=== PATIENT | female | born 1950 | race Caucasian/White ===

== ENCOUNTER → 2016-12-11 | Outpatient (CLI) | payer OTHER ==
[~2016-12-11] MED LIST: ASPI81TA28 PO; DLB500 PO; LEVO125C2 PO; LOSA50TA54 PO; LSX/40 PO; METO25TA56 PO; MISC1CAP58 PO; MULT-506 PO; POTA10TA PO; ZCR40 PO
== END | disposition home or self-care (01) ==
LOC: C.RDSM 15:04
PROVIDERS: ATTEND Physical Medicine & Rehabilitation Sports Medicine
DX: M19.011 Primary osteoarthritis, right shoulder (principal); Z97.10 Presence of artificial limb (complete) (partial), unspecified

== ENCOUNTER → 2017-07-27 | Outpatient (CLI) | payer OTHER | END | disposition home or self-care (01) | LOC: C.RDSM 15:30 | PROVIDERS: ATTEND Physical Medicine & Rehabilitation Sports Medicine | DX: M19.011 Primary osteoarthritis, right shoulder (principal); Z97.10 Presence of artificial limb (complete) (partial), unspecified ==

== ENCOUNTER 2018-11-18 07:26 | Inpatient (IN) ==
--- NOTE | 2018-11-04 14:11 | PAT Medication Instructions ---
Medication Instructions Date of Service November 04, 2018 Home Medications aspirin [Aspirin Low Dose] 81 mg PO HS diflunisal 500 mg PO BID fenofibrate micronized 134 mg PO PM furosemide 40 mg PO QAM levothyroxine 125 mcg PO QAM losartan 50 mg PO HS lutein 20 mg PO HS metoprolol succinate 50 mg PO HS multivitamin 1 tab PO HS potassium chloride 20 meq PO BID simvastatin 40 mg PO HS ASK your surgeon for instructions diflunisal 500 mg PO BID STOP taking 2 weeks before surgery (or as soon as possible if surgery is within 2 weeks) lutein 20 mg PO HS STOP taking 24 hours before surgery fenofibrate micronized 134 mg PO PM DO NOT take the morning of surgery furosemide 40 mg PO QAM potassium chloride 20 meq PO BID Take morning of surgery With a small sip of water, OTHERWISE NOTHING TO EAT OR DRINK AFTER MIDNIGHT: levothyroxine 125 mcg PO QAM Take evening before surgery aspirin [Aspirin Low Dose] 81 mg PO HS losartan 50 mg PO HS metoprolol succinate 50 mg PO HS multivitamin 1 tab PO HS potassium chloride 20 meq PO BID simvastatin 40 mg PO HS Other Notes If you have any questions please call us at [phone] or [phone] or [phone] or [phone]
--- NOTE | 2018-11-05 12:07 | Anesthesiology Consultation ---
Date of Service November 05, 2018 Assessment & Plan (1) Encounter for pre-operative examination: Plan: - PCP= 10/12/18= medically cleared for surgery-- "YES" Chart Review Chart Review: Acceptable Risk for Surgery and Patient seen in Pre Admission Testing Teaching & Discussion Pre-Anesthesia Teaching/Discussion Notes: Instructed NPO after midnight before surgery,except medications with 15 cc of water. Medication instructions provided according to the PAT guidelines. History Surgery Operation Date: 11/18/18 07:15 Proposed Procedures p Left Total Shoulder Arthroplasty Versus Cuff Tear Arthroplathy (CTA) Arthroplasty - Jed Olsen MD Height/Weight Height: 5 ft 4.5 in Weight: 89.2 kg Allergies Allergy/AdvReac Type Severity Reaction Status Date / Time No Known Drug Allergies Allergy Unknown NKDA Verified 11/04/18 11:29 adhesive AdvReac Unknown TEGADERM Verified 11/04/18 11:29 CAUSED SEVERE ITCHING AND REDDNESS Medications Home Medications Medication Instructions Recorded Confirmed Last Taken aspirin [Aspirin Low Dose] 81 mg PO HS 11/04/18 11/04/18 Unknown diflunisal 500 mg PO BID 11/04/18 11/04/18 Unknown fenofibrate micronized 134 mg PO PM 11/04/18 11/04/18 Unknown furosemide 40 mg PO QAM 11/04/18 11/04/18 Unknown levothyroxine 125 mcg PO QAM 11/04/18 11/04/18 Unknown losartan 50 mg PO HS 11/04/18 11/04/18 Unknown lutein 20 mg PO HS 11/04/18 11/04/18 Unknown metoprolol succinate 50 mg PO HS 11/04/18 11/04/18 Unknown multivitamin 1 tab PO HS 11/04/18 11/04/18 Unknown potassium chloride 20 meq PO BID 11/04/18 11/04/18 Unknown simvastatin 40 mg PO HS 11/04/18 11/04/18 Unknown Past Medical History Medical History Chronic back pain Diverticular disease Fibromyalgia Hyperlipidemia Hypertension Hypothyroidism Obesity SVT (supraventricular tachycardia) OCCASIONAL BREAKTHROUGH EPISODES ON BETA MARINO- HAS RESOLVED PREVIOUSLY WITH VAGAL MANEUVERS Sleep apnea CPAP Temporomandibular joint disorder NO LOCKING Past Family History Family History Mother Family history of diabetes mellitus Father Family history of diabetes mellitus Brother Family history of diabetes mellitus Past Surgical History Surgical History Cornea replaced by transplant RIGHT History of cataract surgery BILATERAL History of colonoscopy History of hysterectomy TOTAL VAGINAL HYSTERECTOMY History of total hip arthroplasty RIGHT History of total shoulder replacement RIGHT Past Anesthesia History No Hx of Anesthesia Complications and No Family Hx of Anesthesia Complications History of PONV No Motion Sickness Screening History of Motion Sickness: No Social History Smoking Status: Never smoker Do You Dip or Chew Tobacco: No Hx Alcohol Use: Yes Alcohol type: beer and wine alcohol intake frequency: a few times a month Hx Substance Use: No substance use type: does not use Exercise / Class Metabolic Activity II 4-5 Yardwork/Stairs/Walk up hill Review of Systems Patient denies chest pain, shortness of breath, dyspnea on exertion, cough, wheezing, palpitations. Physical Exam Vital Signs VITALS BP 147/88 P 54 TEMP 97.6 SP02 99%RA RESP 20 Full neck and c-spine range of motion. Full TMJ range of motion. TMD 3 finger breaths Mallampati Score 1 Dentition: intact Lungs: clear throughout to auscultation Cardiac: regular rate and rhythm, no murmurs noted Spine: normal Carotid arteries: negative bruit Extremities: no edema Testing Electrocardiogram Date: 11/05/18 Findings: + NSR @ (60) Chest X-Ray Date: 11/05/18 Findings: + NAD Right shoulder total joint arthroplasty. 11 mm ovoid radiodensity about the right shoulder may reflect cement material within the subscapularis recess ( report sent to PCP for their reference). Laboratory Results 11/05/18 12:16 11/05/18 12:16 Blood Type B Positive 11/05/18 12:16 Antibody Screen NEGATIVE 11/05/18 12:16 PT 10.8 Seconds (9.0-12.0) 11/05/18 12:16 INR 1.1 (0.9-1.1) 11/05/18 12:16 APTT 29.9 Seconds (21.0-31.0) 11/05/18 12:16 Urine Color Yellow 11/05/18 12:16 Urine Appearance Cloudy (Clear) H 11/05/18 12:16 Urine pH 5.5 (4.5-7.5) 11/05/18 12:16 Ur Specific [place] 1.018 (1.000-1.030) 11/05/18 12:16 Urine Protein Negative (Negative) 11/05/18 12:16 Urine Glucose (UA) Negative (Negative) 11/05/18 12:16 Urine Ketones Negative (Negative) 11/05/18 12:16 Urine Nitrite Negative (Negative) 11/05/18 12:16 Ur Leukocyte Esterase Negative (Negative) 11/05/18 12:16 Urine WBC (Auto) 5-10 /hpf (0-5) H 11/05/18 12:16 Urine RBC (Auto) 0-4 /hpf (0-4) 11/05/18 12:16 U Hyaline Cast (Auto) >30 /lpf (0-5) H 11/05/18 12:16 U Epithel Cells (Auto) 0-5 /lpf (0-5) 11/05/18 12:16 Urine Bacteria (Auto) 2+ (Negative) H 11/05/18 12:16 Surgeon made aware of abnormal UA*
[2018-11-05 12:32] LABS: Basophils # (auto) 0.03 K/uL (0-0.2); Basophils % (auto) 0.6 %; Hematocrit (blood only) 41.4 % (37-47); Hemoglobin 13.5 g/dL (12.0-16.0); Immature Granulocytes # (auto) 0.01 K/uL (0.00-0.02); Immature Granulocytes % (auto) 0.2 %; Lymphocytes # (auto) 1.35 K/uL (1.2-3.4); Lymphocytes % (auto) 25.3 %; Mean Corpuscular Hgb Conc 32.6 g/dL (32-36); Mean Corpuscular Volume 91.2 fL (80-100); Mean Platelet Volume 9.2 fL (7.4-10.4); Monocytes # (auto) 0.37 K/uL (0.11-0.59); Monocytes % (auto) 6.9 %; Neutrophils # (auto) 3.57 K/uL (1.4-6.5); Platelet Count 367 K/uL (130-400); RDW Coefficient of Variation 13.5 % (11.5-14.5); RDW Standard Deviation 44.6 fL (36.4-46.3); Red Blood Count 4.54 M/uL (4.2-5.4); White Blood Count 5.33 K/uL (4.8-10.8)
[2018-11-05 13:04] LABS: INR 1.1 (0.9-1.1); Partial Thromboplastin Ratio 1.2; Partial Thromboplastin Time 29.9 Seconds (21.0-31.0); Prothrombin Time 10.8 Seconds (9.0-12.0)
--- NOTE | 2018-11-05 13:06 | XRay Report ---
XR chest Pre-admission PA/Lat HISTORY: 67 years-old Female pat preoperative exam. No acute chest complaints COMPARISON: Right shoulder radiographs 07/26/2018 TECHNIQUE: PA and lateral views of the chest FINDINGS: Right shoulder total joint arthroplasty. 11 mm ovoid radiodensity about the right shoulder may reflec t cement material within the subscapularis recess. Degenerative changes of the left shoulder and spin e. Cardiomediastinal and hilar silhouettes are within normal limits. There is no pneumothorax, pleura l effusion, focal airspace consolidation or overt pulmonary edema. IMPRESSION: No acute process. The above report was generated using voice recognition software. It may contain grammatical, syntax o r spelling errors. Electronically signed by: Jerel Agustin M.D. 11/05/2018 1:05 PM
[2018-11-05 13:28] LABS: Appearance Urine Cloudy (Clear); Bilirubin Urine Negative (Negative); Color Urine Yellow; Glucose Urine UA Negative (Negative); Ketones Urine Negative (Negative); Leukocyte Esterase Urine Negative (Negative); Nitrite Urine Negative (Negative); Protein Urine Negative (Negative); Specific Gravity Urine 1.018 (1.000-1.030); Urobilinogen Urine Negative (Negative); pH Urine 5.5 (4.5-7.5)
[2018-11-05 13:31] LABS: BUN Creatinine Ratio 17.5 (10-20); Calcium 9.9 mg/dl (8.5-10.1); Creatinine Clr Calc Pharmacy 47.3 ml/min; Est GFR (African American) 51.1; Potassium 3.7 mmol/L (3.5-5.1)
[2018-11-05 13:40] LABS: Bacteria Urine Automated 2+ (Negative); Cast Urine Automated >30 /lpf (0-5); Epithelial Cell Urine Auto 0-5 /lpf (0-5)
[2018-11-05 13:42] LABS: Renal Epithelial Cells Urine 0-5 /lpf (0-5)
--- NOTE | 2018-11-08 20:02 | History and Physical Report ---
DATE OF ADMISSION: DATE OF SURGERY: 11/18/2018 CHIEF COMPLAINT: Left shoulder pain. HISTORY OF PRESENT ILLNESS: This is a 67-year-old white female who presents to the office with complaints of longstanding history of left shoulder pain. This has been ongoing for almost 2 years. She previously had a right total shoulder arthroplasty on 12/05/2015 and has done very well with that. She elects to proceed with the same on the left. Left hand dominant. She denies any numbness or tingling. She does note significant loss of motion. She also notes weakness. She has tried physical therapy and oral pain medications without improvement. Pain is affecting her ADLs. She denies any elbow or wrist pain. No recent injury. She elects to proceed with left total shoulder arthroplasty versus CTA head placement. PAST MEDICAL HISTORY: Significant for hypertension, elevated cholesterol, history of atrial fibrillation, osteoarthritis, sleep apnea, use of continuous positive airway pressure, low back pain, obesity, TMJ syndrome and hypothyroidism. PAST SURGICAL HISTORY: Hysterectomy, cataract surgery, right total hip in 2014 and right total shoulder replacement on 12/05/2015. ALLERGIES: NKDA. SOCIAL HISTORY: The patient is . No tobacco use. Occasional ETOH use. FAMILY HISTORY: Noncontributory. CURRENT MEDICATIONS: Aspirin 81 mg daily, Diflunisal 500 mg p.o. q. 8 hours, fluoxetine 20 mg p.o. daily, furosemide 40 mg p.o. daily, hydrocodone p.r.n., Synthroid unknown dose daily, losartan unknown dose daily, Lutein 20 mg p.o. daily, metoprolol 50 mg p.o. daily, multivitamins daily and simvastatin 40 mg at bedtime and potassium 20 mEq daily. REVIEW OF SYSTEMS: Total of 10 systems were reviewed and are significant only for above stated conditions. PHYSICAL EXAMINATION: GENERAL: Well-developed, well-nourished elderly white female, in no acute distress. Sitting in a chair. Alert and oriented. SKIN: Warm and dry with good turgor. No rashes or lesions. No ecchymosis or erythema. HEENT: Normocephalic and atraumatic. Eyes, PERRLA, EOMI. Nares patent bilaterally without turbinate enlargement. Oropharynx without erythema or exudate. No lesions noted. Uvula midline. Oral mucosa moist. Fair dentition. Dental fillings are noted. HEART: RRR. No MGR. Occasional extra beats. LUNGS: Clear to auscultation bilaterally. No crackles, rhonchi or wheezing. Good air movement. ABDOMEN: Moderately obese. Bowel sounds present x4. Soft and nontender. No organomegaly. No masses. MUSCULOSKELETAL: Left shoulder evaluation reveals no obvious asymmetry or deformity. She has focal pain with palpation over the anterior and posterior glenohumeral joint. No palpable crepitus with motion. She has very limited range of motion secondary to pain. Abduction of only around 50 degrees, forward flexion of around 80 degrees, internal rotation with her arm against her abdomen. External rotation to about 5 degrees beyond neutral. Behind the back reach only to belt line. She is unable to perform supraspinatus, Inman or Neer impingement testing secondary to pain. She has strength 4+/5 for resisted abduction, forward flexion and extension as well as internal rotation with her elbow at her side. Elbow examination is benign. Full motion for flexion and extension. This does cause pain at the anterior shoulder. Full supination and pronation. Wrist exam is benign. Full motion. Full range of motion of the digits. Good police surgeon strength. NEUROLOGIC: Cranial nerves II through XII are intact. Gross sensation is intact across the left arm by soft touch. Peripheral pulses are 2+. DATA: Radiographic imaging previously obtained showed significant degenerative joint disease of the glenohumeral joint of the left shoulder. Joint space narrowing, periarticular osteophytes, and goat's fernández deformity are all present. IMPRESSION: Left shoulder end-stage degenerative joint disease. PLAN: Approximately 20 minutes was spent with the patient reviewing operative procedure, postoperative recovery, physical therapy requirements and medication use. Postoperative prescription for Percocet will be provided at discharge from the hospital. Anticipate one night stay. She will do physical therapy at the office and then transition her physical therapy closer to home. Preoperative lab work, electrocardiogram and chest x-ray have been ordered. Medical clearance has been received from her primary care physician.
[~2018-11-18 07:26] MED LIST changes: -ASPI81TA28 PO; +CEFAZOLIN 2000MG 2,000 MG/15 ML SYR IV SCH; -DLB500 PO; +LACTATED RINGER'S 1,000 ML IV SCH; -LEVO125C2 PO; -LOSA50TA54 PO; +LR 15ML/HR IV SCH; -LSX/40 PO; -METO25TA56 PO; -MISC1CAP58 PO; -MULT-506 PO; -POTA10TA PO; +TRANEXAMIC ACID 1,000 MG **IV Pre-op IV SCH; -ZCR40 PO
[2018-11-18] MEDS ORDERED: ROPIVACAINE 0.5% 5 MG/ML 30 ML VIAL ONE (07:51)
--- NOTE | 2018-11-18 08:38 | History & Physical Bridge Note ---
Date of Service November 18, 2018 History & Physical Bridge Note I have examined the patient, reviewed the History & Physical and in the interval since the performance of the History & Physical I have noted the following changes of clinical significance:consent obtained. no changes noted
[2018-11-18] MEDS ORDERED: MIDAZOLAM HCL 1 MG/ML 2ML VIAL ONE (08:49)
[2018-11-18] MEDS ORDERED: fentaNYL citrate 100 MCG/2 ML VIAL ONE (08:49)
[2018-11-18] MEDS ORDERED: fentaNYL citrate 100 MCG/2 ML VIAL IV PRN (09:45)
[2018-11-18] MEDS ORDERED: ePHEDrine sulfate 50 MG/ML AMP IV PRN (09:45)
[2018-11-18] MEDS ORDERED: ONDANSETRON INJ 2 MG/ML 2 ML VIAL IV PRN ×2 (09:45→14:17)
[2018-11-18] MEDS ORDERED: ATROPINE SULFATE 0.1 MG/ML 10ML SYR IV PRN (09:45)
[2018-11-18] MEDS ORDERED: ONDANSETRON INJ 2 MG/ML 2 ML VIAL ONE (10:08)
[2018-11-18] MEDS ORDERED: LIDOCAINE HCL 2% 2 ML VIAL/AMP(20MG/ML) INFIL ONE (10:08)
[2018-11-18] MEDS ORDERED: PROPOFOL IV EMULSION 10 MG/ML 20 ML VIAL IV ONE (10:08)
[2018-11-18] MEDS ORDERED: THROMBIN FOR SOLN 20000 UNIT KIT ONE (10:42)
[2018-11-18] MEDS ORDERED: BACITRACIN INJ 50,000 UNIT VIAL ONE (10:42)
[2018-11-18] MEDS ORDERED: ePHEDrine sulfate 50 MG/ML SYR ONE (11:36)
[2018-11-18] MEDS ORDERED: PHENYLEPHRINE 100MCG/ML 5ML SYR ONE (11:36)
[2018-11-18] MEDS ORDERED: PHENYLEPHRINE HCL 10 MG/ML VIAL ONE (11:47)
[2018-11-18] MEDS ORDERED: POVIDONE-IODINE OP SOLN 30 ML BTL ONE (12:08)
--- NOTE | 2018-11-18 13:04 | Post Operative Brief Note ---
Immediate Post Op Note v1 Date of Surgery November 18, 2018 Pre & Post Diagnosis Operation Date: 11/18/18 10:55 Pre-Op Diagnosis: Left Shoulder End-Stage Degeneraitve Joint Disease Post-Op Diagnosis: Left Shoulder End-Stage Degeneraitve Joint Disease Procedure Operation Date: 11/18/18 10:55 Actual Procedures p Left Total Shoulder Arthroplasty(Left) - Jed Olsen MD Surgeon Jed Olsen MD Wire [facility] Estimated Blood Loss 200 Findings Consistent with Post-Op Diagnosis
--- NOTE | 2018-11-18 13:23 | Operative Report ---
Post Operative Report Pre & Post Diagnosis Operation Date: 11/18/18 10:55 Pre-Op Diagnosis: Left Shoulder End-Stage Degeneraitve Joint Disease Post-Op Diagnosis: Left Shoulder End-Stage Degeneraitve Joint Disease Procedure Operation Date: 11/18/18 10:55 Actual Procedures p Left Total Shoulder Arthroplasty(Left) - Jed Olsen MD Surgeon REZA Olsen MD Emergency Communications Dispatcher natan Estimated Blood Loss 200 Findings Consistent with Post-Op Diagnosis Specimens See operative report Drains None Complications none Disposition Accompanied Patient To Recovery: Yes Disposition: Recovery Room Indications This 67-year-old white female presented to the office with complaints of intractable left shoulder pain. She had tried conservative care measures including activity modification, physical therapy, and cortisone injections, without lasting relief. She elected to proceed with surgical intervention after being educated about potential risks and outcomes. Preoperative imaging was obtained. Description of Procedure Patient was administered a regional anesthetic and then taken to the operating room where she was given general anesthesia. She was prepped and draped in the usual sterile fashion. Please see Dr. Olsen's operative report for specifics of the procedure. I was present for the entire case from initial patient positioning through final wound closure. Assistance was provided in tissue retraction, hemostasis, trial implant placement, final implant placement , and final wound closure. Patient was taken to the recovery room in satisfactory condition. I attest to the content of the Intraoperative Record and any orders documented therein. Any exceptions are noted below.
--- NOTE | 2018-11-18 13:41 | Operative Report ---
DATE OF OPERATION: 11/18/2018 SURGEON: Jed Olsen MD. PAINTER HELPER SIGN: Reynold Baeza PA-C. No resident or fellow available. PREOPERATIVE DIAGNOSIS: Osteoarthritis, left shoulder. POSTOPERATIVE DIAGNOSIS: Osteoarthritis, left shoulder. OPERATION PERFORMED: Hybrid total shoulder replacement with cemented glenoid and press-fit humeral stem. PERIOPERATIVE SITUATION: Medically cleared female with intractable shoulder pain with physical exam and x-ray revealing substantial osteoarthritis of her glenohumeral joint with marked joint space narrowing, minor posterior erosion, significant osteoarthritis, osteophyte of the humeral neck. SUMMARY OF IMPLANTS: Size 44 keeled glenoid cemented, size 10 stem Global Advantage porous coated 44 x 18 humeral head, [place] G cement. ESTIMATED BLOOD LOSS: 200 mL. CRYSTALLOID: Per anesthesia. PATHOLOGY: Pending on bone. PROPHYLAXIS: DVT prophylaxis with aspirin. DESCRIPTION OF PROCEDURE: Patient appropriately identified, site verified, consent verified. Antibiotics confirmed as being given. The left upper extremity was examined revealing no instability. She had external rotation to about 35 degrees with the arm at the side, forward flexion about 130 degrees. She was then placed in the slight beach chair position, and the upper extremity prepped and draped in the usual routine fashion. Deltopectoral approach to the shoulder was made. The cephalic vein was preserved. The clavipectoral fascia identified and incised. Retractors placed. The subscapularis was then subperiosteally taken off the tuberosity and tagged with #2 Ethibond. The biceps tendon was then tenotomized and used later to repair the subscapularis as well. The joint was then subluxated. Marginal osteophytes removed with care taken to work on the humerus to protect the axillary nerve diving posteriorly. There was no major bleeding encountered. The humeral head was then resected. It was then revised in 2 smaller cuts as well, and this allowed excellent visualization without compromising the tuberosity attachment of the supraspinatus. The cup was intact superiorly, so it was elected to proceed with a total shoulder replacement. A centering meir made in the glenoid. Appropriate osteophyte resection used with the reamers and then the keeled slot made with a power bur. Once this was deepened appropriately, the trial could fit easily. This was all then cleaned out with a Pulsavac, and then thrombin was placed. The wound was irrigated 1 final time and then cemented into position. After 11 minutes, the cement was cured and everything looked good. The glenoid was nice and stable. The humerus was then delivered into the wound after all the remnants were removed, nothing major looked like it was retained. Some minor cement on the posterior glenoid poly was left alone to not damage that. The wound was irrigated one final time. No additional loose cement identified. The humerus was then delivered into the wound, and serial broaching carried up to a size 10. Once this was fit with the 10, the reduction was carried out with a 44 x 18 head, and the head was nice and stable anteriorly, with the humerus staying in the center of the glenoid with the arm externally rotated roughly 45 degrees. Once this was confirmed, the trials were removed. The wound was irrigated. Sutures were placed for subscapularis repair with #2 FiberWire. They were placed through bone and then ultimately around the implant. Once the implant was seated, the sutures were pulled as they were being delivered so that it was all slack. This was all removed. The head was then placed. The Cerrato taper fit was excellent. There was no loosening. The shoulder was then reduced. Rotator interval was closed with a #1 Vicryl stitch superiorly to the subscapularis and the supraspinatus. The remaining stitches that were placed in the retention suture to mobilize the subscapular and then the 2 that were around the stem and in the bone were used to repair the subscapular down to the tuberosity with an excellent repair. Biceps was then tenodesed at this level as well with the sutures. The wound was then irrigated with Betadine and Pulsavac and then the wound closed with #2 Vicryl and stainless steel clips. Appropriate dressing applied and the patient transferred to the recovery room in satisfactory condition having tolerated the procedure well. Pathology pending on bone. Summary of implants as noted above. I attest to the content of the Intraoperative Record and any orders documented therein. Any exception s are noted below.
--- NOTE | 2018-11-18 13:54 | XRay Report ---
XR shoulder LT min 2V routine CLINICAL HISTORY: Post shoulder surgery postoperative COMPARISON: None. DISCUSSION: Anatomic alignment post left shoulder arthroplasty. Expected soft tissue postoperative ch jack IMPRESSION: Anatomic alignment post left shoulder arthroplasty. The above report was generated using voice recognition software. It may contain grammatical, syntax or spelling errors. Electronically signed by: Kin Meade M.D. 11/18/2018 1:53 PM
--- NOTE | 2018-11-18 13:57 | Anesthesiology Progress Note ---
Date of Service November 18, 2018 Anesthesia Post Procedure Vital Signs Vital Signs: Temp Pulse Pulse Resp BP Pulse Ox 11/18/18 13:45 98.1 F 60 18 128/73 96 11/18/18 13:35 58 L 18 129/80 97 11/18/18 13:25 64 18 130/76 96 11/18/18 13:15 62 18 120/79 95 11/18/18 13:09 96.8 F L 66 12 137/82 94 11/18/18 08:10 98.4 F 60 18 160/94 H 96 Pain Intensity Left Shoulder: Pain Intensity: 6 Notes Mental Status: alert / awake / arousable and participated in evaluation Patient Amnestic to Procedure: Yes Nausea / Vomiting: adequately controlled Pain: adequately controlled Airway Patency, RR, SpO2: stable & adequate BP & HR: stable & adequate Hydration State: stable & adequate Anesthetic Complications: no major complications apparent and Pt Satisfied with anesthetic care
[2018-11-18] MEDS ORDERED: ALUMINUM/MAGNESIUM SUSP 30 ML UDC PO PRN (14:17)
[2018-11-18] MEDS ORDERED: DiphenhydrAMINE HCL 50 MG/ML VIAL IV PRN (14:17)
[2018-11-18] MEDS ORDERED: NALOXONE HCL 0.4 MG/1 ML VIAL/CARP IV PRN (14:17)
[2018-11-18] MEDS ORDERED: BISACODYL 10 MG SUPP PR PRN (14:17)
[2018-11-18] MEDS ORDERED: KETOROLAC TROMETHAMINE 15 MG/ML VIAL IV PRN (14:17)
[2018-11-18] MEDS ORDERED: SODIUM CHLORIDE 0.9% 1000ML 1,000 ML IV SCH (14:17)
[2018-11-18] MEDS ORDERED: MAGNESIUM HYDROXIDE SUSP 30 ML UDC PO PRN (14:17)
[2018-11-18] MEDS ORDERED: METOCLOPRAMIDE HCL INJ 5 MG/ML 2 ML VIAL IV PRN (14:17)
[2018-11-18] MEDS ORDERED: HYDROmorphone INJ 0.5 MG/0.5 ML SYR IV PRN (14:17)
[2018-11-18] MEDS: ACETAMINOPHEN 1,000 MG/100 ML VIAL IV SCH ×2 (16:04→21:27)
[2018-11-18] MEDS ORDERED: TRANEXAMIC ACID 1,000 MG in 0.9 % SODIUM CHLORIDE 100 ML IV SCH (18:00)
[2018-11-18] MEDS: FERROUS GLUCONATE 324 MG TAB PO SCH (18:02)
[2018-11-18] MEDS: CEFAZOLIN 2000MG 2,000 MG/15 ML SYR IV SCH (18:02)
[2018-11-18] MEDS ORDERED: METOPROLOL SUCC 50MG EXT REL TAB PO SCH (21:00)
[2018-11-18] MEDS ORDERED: POTASSIUM CHLORIDE 20 MEQ TABCR PO SCH (21:00)
[2018-11-18] MEDS ORDERED: DOCUSATE SODIUM 100 MG CAP PO SCH (21:00)
[2018-11-18] MEDS ORDERED: SENNA 8.6 MG TAB PO SCH (21:00)
[2018-11-18] MEDS ORDERED: DIFLUNISAL 500 MG TAB PO SCH (21:00)
[2018-11-18] MEDS ORDERED: ASPIRIN 81 MG ECTAB PO SCH (21:00)
[2018-11-18] MEDS ORDERED: SIMVASTATIN 40 MG TAB PO SCH (21:00)
[2018-11-18] MEDS ORDERED: LOSARTAN POTASSIUM 50 MG TAB PO SCH (21:00)
[2018-11-19] MEDS: CEFAZOLIN 2000MG 2,000 MG/15 ML SYR IV SCH (02:32)
[2018-11-19] MEDS: ACETAMINOPHEN 1,000 MG/100 ML VIAL IV SCH (06:05)
[2018-11-19] MEDS ORDERED: LEVOTHYROXINE SODIUM 125 MCG TABLET PO SCH (06:30)
--- NOTE | 2018-11-19 07:13 | Progress Note ---
DATE: 11/19/2018 SUBJECTIVE: Status post left total shoulder replacement. The patient is doing well, has no major issues. Denies any chest pain, shortness of breath, fever, chills, nausea, vomiting, or headache. OBJECTIVE: Vital signs are stable. She is afebrile. Neurovascular check, median, radian, ulnar, suprascapular and axillary nerve is normal. Wound dressing clean, dry and intact. X-rays look excellent. ASSESSMENT: Doing well. Discharge to home today. PT, 30 degrees abduction, 30 degrees forward flexion, no extension and internal and external rotation from belly to 0 degrees, all passive. No active internal rotation for 3-4 weeks.
--- NOTE | 2018-11-19 07:16 | Discharge Summary ---
CHIEF COMPLAINT: Left shoulder pain. HISTORY OF PRESENT ILLNESS: Admitted for elective left total shoulder replacement. Her hospital course has been uneventful. She will be discharged today. PAST MEDICAL HISTORY: Remarkable for hypertension, hypercholesterolemia, atrial fibrillation, osteoarthritis, sleep apnea, TMJ syndrome, hypothyroidism. PAST SURGICAL HISTORY: Remarkable for hysterectomy, cataract surgery, right total hip replacement, right shoulder replacement. ALLERGIES: None. SOCIAL HISTORY: . No tobacco or alcohol use. PREADMISSION MEDICATIONS: Include aspirin, fluoxetine, furosemide, Synthroid, metoprolol, simvastatin, potassium. She will not use any Coumadin. REVIEW OF SYSTEMS: Noncontributory. ASSESSMENT: Overall, doing well, will discharge home today status post total shoulder replacement.
[2018-11-19] MEDS ORDERED: dexAMETHasone 10 MG in SYRINGE 0 ML IV SCH (08:00)
[2018-11-19] MEDS: OXYCODONE HCL IR 5 MG TAB (IMMEDIATE RELEASE) PO PRN ×2 (08:20→11:02)
[2018-11-19] MEDS ORDERED: MULTIVITAMIN TAB PO SCH (09:00)
[2018-11-19] MEDS ORDERED: FUROSEMIDE 40 MG TAB PO SCH (09:00)
[2018-11-19] MEDS: FERROUS GLUCONATE 324 MG TAB PO SCH (09:07)
--- NOTE | 2018-11-19 09:36 | Orthopedic Progress Note ---
Date of Service November 19, 2018 Assessment & Plan (1) Status post total shoulder arthroplasty: PT/OT this AM Discharge later this AM Will be seen in our PT department directly after discharge DVT Prophylaxis with Aspirin and TEDs Pain control with PO meds Ice with EZ wrap. Outpatient PT in [place] F/u at [facility] in 2 wks for f/u and staple removal. Subjective Patients is day 1 s/p Left total shoulder arthroplasty. Is doing very well. Has no complaints. Pain well controlled with PO meds. Dressing clean, dry and intact. Denies CP, SOB, nausea, vomiting, fever, chills or sweats. She will be discharged this AM and is scheduled to be seen in our PT dept at 12:30. She will have her dressing changed at that time. Physical Exam 2 Vital Signs (Past 24 Hours): Last Vital Signs Temp 37.8 C H 11/19/18 08:00 Pulse 77 11/19/18 08:00 Resp 17 11/19/18 08:00 BP 146/82 H 11/19/18 08:00 Pulse Ox 95 11/19/18 08:00 Physical Exam: Left shoulder: Dressing intact. Pt is able to depict light sensation to touch circumferentially around foam take. FROM of elbow, wrist and fingers. periph pulses easily palpable. Cap refill < 2 seconds. NV intact in Left UE. Passive ROM: Forward flex to 15 degress and abduction to 12 degrees without pain. Did not attempt rotation positioning due to procedure performed.
== END 2018-11-19 11:57 | disposition home or self-care (01) | DRG 483 ==
LOC: ASU 07:26 → 3E 13:21